=== PATIENT | female | born 1965 ===

== ENCOUNTER 2024-11-23 14:14 | Emergency (ER) | payer OTHER, SELFPAY ==
[2024-11-23] VITALS (24 sets, daily range): BP systolic 127–154; BP diastolic 76–87; PULSE 68–81; RESP 8–20; TEMP 36.7; O2SAT 89–100; BMI 26.4
--- NOTE | 2024-11-23 14:50 | DI.RAD.S_ITS ---
PROCEDURE: XR WRIST LT MIN 3V INDICATIONS: fall with wrist deformity TECHNIQUE: 4 views of the wrist were acquired. COMPARISON: None. FINDINGS: Bones: There is no subluxation or dislocation. There is acute comminuted distal radial fracture, involving the epiphysis and metaphysis. There is a large osseous fragment measuring up to 2.5 cm with significant displacement anteriorly. There is extension to the articular surface, with gross disruption. There is moderate displacement laterally. No significant angulation. There is also acute nondisplaced fracture of the distal ulnar metaphysis. Widening of the scapholunate distance. Significant diffuse osteopenia Soft tissues: No suspicious soft tissue calcifications. IMPRESSION: 1. Acute intra-articular distal radial fracture as well as acute distal ulnar fracture as described. 2. Findings of injury of the scapholunate ligament, of uncertain age. Dictated by: Wolf Infante M.D. on 11/23/2024 at 16:51 Approved by: Wolf Infante M.D. on 11/23/2024 at 16:53
--- NOTE | 2024-11-23 14:50 | DI.RAD.S_ITS ---
PROCEDURE: XR LUMBAR SPINE 2-3V INDICATIONS: fall; acute on chronic L sided low back pain TECHNIQUE: 3 views of the lumbar spine were acquired. COMPARISON: None. FINDINGS: Bones: 5 [id number] vertebrae are present. There is mild L5 anterolisthesis. Significant diffuse osteopenia. Mild compression deformities of L4, L2 and T12. Mild multilevel degenerative disc disease as well as facet arthropathy in the L3-S1 region. Soft tissues: Overlying bowel gas pattern is normal. No suspicious soft tissue calcifications. IMPRESSION: Multiple mild compression deformities, the possibility of recent lesion could be further assessed with CT or MRI in this very osteopenic patient. Dictated by: Wolf Infante M.D. on 11/23/2024 at 16:48 Approved by: Wolf Infante M.D. on 11/23/2024 at 16:50
--- NOTE | 2024-11-23 14:50 | DI.RAD.S_ITS ---
PROCEDURE: XR FOREARM LT 2V INDICATIONS: fall; acute on chronic L sided low back pain TECHNIQUE: 2 views of the forearm were acquired. COMPARISON: None. FINDINGS: Bones: There is anatomic alignment. No suspicious bony lesions. Soft tissues: No suspicious soft tissue calcifications or masses. IMPRESSION: 1. Distal radial and ulnar fractures, better assessed on the study of the wrist. 2. No other fracture seen more proximally in the forearm. The region of the elbow is suboptimally assessed. Dictated by: Wolf Infante M.D. on 11/23/2024 at 16:50 Approved by: Wolf Infante M.D. on 11/23/2024 at 16:51
--- NOTE | 2024-11-23 14:53 | ED.UPPEXIN ---
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 to ibuprofen/acetaminophen. Rest the painful area. Ice the area of pain/swelling for at least 15 minutes, 4x a day. Compress the area of swelling using a brace, wrap, or splint if applied. Elevate the painful or swollen extremity by supporting it above the level of the heart with pillows when sitting or laying. You have been prescribed a short course of narcotic medications. These are potentially dangerous and addictive medications that should be used carefully. While on these medications you cannot drive or operate heavy machinery. Additionally, you cannot sign legal documents or perform any duties such as this. 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 Please understand that we cannot provide further refills of narcotics or controlled substances through the ED and your pain management will need to be through your Primary Care Provider Please follow up with your primary care doctor within the next 2-3 days for ER follow-up. (If you do not have a PCP you can call [phone]. ?to schedule an appointment with an [facility] Primary Care Provider) IF YOU DEVELOP ANY NEW OR WORSENING SYMPTOMS, RETURN TO THE ER! Please read the attached instructions, they highlight more specific treatments and interventions for you at home. Thank you for letting me participate in your care, Jocelyn Solano PA-C Prescriptions: New oxycodone 5 mg tablet 5 mg PO Q4-6H PRN (Reason: pain) Qty: 12 0RF Referrals: Fabio Barakat MD [Physician, Orthopedic Surgery] Referral Note: Left wrist fracture Stand Alone Forms: Patient Portal/API
--- NOTE | 2024-11-23 14:56 | PC.NURSE ---
This BLACK OXIDE OPERATOR placed a purewick per patient's request at [phone]
[2024-11-23] MEDS: ONDANSETRON 4 MG/2 ML INJ IV (14:59)
[2024-11-23] MEDS: MORPHINE 4 MG/ML INJ IV ×2 (14:59→16:44)
[2024-11-23] MEDS: fentaNYL 100 MCG/2 ML INJ IV (17:45)
--- NOTE | 2024-11-23 17:50 | DI.RAD.S_ITS ---
PROCEDURE: XR WRIST LT 2V INDICATIONS: post reduction TECHNIQUE: 2 views of the wrist were acquired. COMPARISON: [facility], CR, XR WRIST LT MIN 3V, 11/23/2024, 15:27. FINDINGS: Bones: Spine material obscures fine bony detail. Distal radial comminuted fracture is again seen status post reduction with mildly improved alignment. Questionable nondisplaced distal ulnar fracture. Widening of the scapholunate interval is redemonstrated. Soft tissues: No suspicious soft tissue calcifications. IMPRESSION: Status post reduction of the comminuted distal radial fracture with improved alignment. Approved by: Siddharth Sanchez M.D. on 11/23/2024 at 18:42
--- NOTE | 2024-11-23 18:24 | DI.CT.S_ITS ---
PROCEDURE: CT LUMBAR SPINE WO CON INDICATIONS: lumbar fx on CT TECHNIQUE: Noncontrast 3 mm thick sections acquired from the T12 level to the sacrum. Sagittal and coronal reformats were constructed. For radiation dose reduction, the following was used: automated exposure control. COMPARISON: [facility], CR, XR LUMBAR SPINE 2-3V, 11/23/2024, 15:27. FINDINGS: Image quality: Excellent. Bones: Minimally depressed fracture of the L2 vertebral body, which is suspected to be acute. No significant retropulsion of osseous fragments. Suspected remote prior compression deformity of the L4 vertebral body. There is generalized bony demineralization. Included ribs and pelvis are intact. Trace grade 1 retrolisthesis at T12-L1 and L1-2 and grade 1 anterolisthesis at L5-S1. No suspicious lytic or blastic bony lesions. No pars defects. Discs: Multilevel degenerative disc disease and facet hypertrophy throughout the lumbar spine without high-grade spinal canal stenosis or high-grade neural foraminal narrowing seen in level. Soft tissues: Mildly distended urinary bladder. Status post cholecystectomy. Mild prominence of the bilateral renal collecting systems without an obstructing lesion seen. No retroperitoneal masses or hematomas. Visualized aorta is normal in caliber. IMPRESSION: 1. Minimally depressed fracture at the superior endplate of the L2 vertebral body is likely acute. No retropulsion of osseous fragments. 2. Moderate multilevel degenerative disc disease and facet hypertrophy. Approved by: Siddharth Sanchez M.D. on 11/23/2024 at 19:19
--- NOTE | 2024-11-23 19:53 | PM.HP.IH.1 ---
History of Present Illness History of Present Illness Date Patient Seen: 11/23/24 Chief complaint: fall with deformity. [facility] Social History Smoking Status: Never smoker Meds Home Medications and Allergies Home Medications ?Medication ?Instructions ?Recorded ?Confirmed ?Type oxycodone 5 mg tablet 5 mg PO Q4-6H PRN pain #12 tabs 11/23/24 Rx Allergies Allergy/AdvReac Type Severity Reaction Status Date / Time divalproex sodium (From Allergy Unknown Verified 11/23/24 15:02 Depakote) Penicillins Allergy Unknown Verified 11/23/24 15:02 tetracycline Allergy Unknown Verified 11/23/24 15:02 Exam Vital Signs (past 8 hours): - 11/23/24 14:38 11/23/24 15:22 11/23/24 15:30 Temperature 98.0 F Pulse Rate 69 68 70 Respiratory Rate 18 Blood Pressure 154/84 H Pulse Oximetry 99 98 Oxygen Delivery Method Room Air Oxygen Flow Rate 11/23/24 15:30 11/23/24 16:08 11/23/24 16:30 Temperature Pulse Rate 76 74 Respiratory Rate Blood Pressure 134/77 Pulse Oximetry 98 95 Oxygen Delivery Method Oxygen Flow Rate 11/23/24 16:49 11/23/24 16:49 11/23/24 17:00 Temperature Pulse Rate 75 Respiratory Rate Blood Pressure 134/77 138/79 Pulse Oximetry 99 Oxygen Delivery Method Oxygen Flow Rate 11/23/24 17:00 11/23/24 17:30 11/23/24 17:32 Temperature Pulse Rate 78 78 77 Respiratory Rate 13 17 Blood Pressure Pulse Oximetry 97 97 97 Oxygen Delivery Method Oxygen Flow Rate 11/23/24 17:32 11/23/24 17:35 11/23/24 17:35 Temperature Pulse Rate 75 Respiratory Rate 12 Blood Pressure 142/85 H 140/81 Pulse Oximetry 96 Oxygen Delivery Method Oxygen Flow Rate 11/23/24 17:40 11/23/24 17:40 11/23/24 17:45 Temperature Pulse Rate 77 77 Respiratory Rate 15 15 Blood Pressure 140/81 140/81 Pulse Oximetry 97 97 Oxygen Delivery Method Oxygen Flow Rate 11/23/24 17:46 11/23/24 17:46 11/23/24 17:48 Temperature Pulse Rate 81 74 Respiratory Rate 20 14 Blood Pressure 128/85 134/87 Pulse Oximetry 97 97 Oxygen Delivery Method Oxygen Flow Rate 11/23/24 17:50 11/23/24 17:50 11/23/24 17:54 Temperature Pulse Rate 74 77 Respiratory Rate 14 14 Blood Pressure 134/87 150/77 H Pulse Oximetry 100 92 Oxygen Delivery Method Oxygen Flow Rate 4 11/23/24 17:55 11/23/24 17:55 11/23/24 18:00 Temperature Pulse Rate 77 79 Respiratory Rate 14 17 Blood Pressure 150/77 H Pulse Oximetry 92 96 Oxygen Delivery Method Oxygen Flow Rate 11/23/24 18:00 11/23/24 18:04 11/23/24 18:05 Temperature Pulse Rate 80 76 Respiratory Rate 20 8 L Blood Pressure 133/84 Pulse Oximetry 95 Oxygen Delivery Method Oxygen Flow Rate 11/23/24 18:05 11/23/24 18:10 11/23/24 18:10 Temperature Pulse Rate 78 Respiratory Rate 13 Blood Pressure 131/82 127/76 Pulse Oximetry 89 L Oxygen Delivery Method Oxygen Flow Rate 11/23/24 18:30 11/23/24 19:00 Temperature Pulse Rate 78 78 Respiratory Rate 11 L 11 L Blood Pressure Pulse Oximetry 98 98 Oxygen Delivery Method Oxygen Flow Rate Oxygen Delivery Method Room Air Oxygen Flow Rate 4 Assessment & Plan Assessment & Plan narrative: ? CC: LEFT Distal Radius Fracture on 11/23/24 HPI: 58yo F? with a past medical history of epilepsy presents to the emergency department for left wrist pain.? She was working at [employer] and she tripped over someone at work where she fell onto her left outstretched hand.? She had immediate pain and swelling and then presented to the emergency department. ? They obtained radiographs which demonstrated the left distal radius fracture.? Orthopedics was then consulted.? On exam she complained of ongoing left hand pain and numbness and tingling. EXAM: LEFT ?wrist: Skin intact, ??Moderate edema;? no ecchymosis No snuffbox/tubercle TTP No TTP about elbow, no elbow pain with full flex/ext/pro/supp. SILT R/U/M? described mild paresthesias however was intact Fires EPL/EDC/FPL/IO/WE/WF/Biceps/Triceps/Delt 2+ Radial pulse, brisk cap refil to all digits IMAGING: LEFT Wrist radiographs on 11/23/24: ?displaced extra-articular distal radius fracture.? The main component is a transverse fracture in the metaphyseal diaphyseal junction.? She also has a large cortical ??Volar fragment that appears to be rotated anteriorly. LEFT? wrist radiographs on November 23, 2024:? Status post closed reduction and splinting.? There is improved alignment with her distal radius near neutral.? The volar fragment appears to be slightly improved in its rotation. ASSESSMENT: 58yo F?? Presents with a left distal radius fracture after a ground level fall.? She underwent a closed reduction and splinting in the emergency department.? There is improve in alignment and her paresthesias improved after the reduction. ? At this point this fracture pattern can be treated nonoperatively.? However I warned her that she may have a loss of reduction.? We will watch her closely and I will have her follow up in clinic early next week for repeat radiographs and likely transition to a cast.? I warned her that if she loses reduction we may need to consider open reduction internal fixation of the distal radius fracture. PLAN: ? Sugar-tong splint until follow up with Orthopedics ?nonweightbearing left upper extremity ?follow up with Orthopedics next week for repeat radiographs and likely transition to a cast The patient had the treatment plan explained, questions answered and seemed satisfied with the plan. There were no apparent barriers to communication. The documentation in this note may have been entered with the assistance of computer voice recognition and dictation software. Therefore, it may contain unintended errors in text, spelling, punctuation, or grammar. Fabio Barakat MD Orthopaedic Surgeon Time-Based Coding :: 60 spent with patient and on the chart (including review of chart, obtaining history, exam, reviewing outside data, placing orders, documenting exam and treatment plan, and counseling patient) on 11/23/24. [employer] Itinerant Teacher Assistant Document charge(s): Yes
[2024-11-23] MEDS: ONDANSETRON 4 MG ODT PREPACK 1 BOTTLE MISC (21:05)
== END 2024-11-23 21:25 | disposition home or self-care (01) ==
PROVIDERS: Emergency Provider Physician Assistant
DX: S52.502A Unspecified fracture of the lower end of left radius, initial encounter for closed fracture (principal); S52.602A Unspecified fracture of lower end of left ulna, initial encounter for closed fracture; S32.040A Wedge compression fracture of fourth lumbar vertebra, initial encounter for closed fracture; S22.080A Wedge compression fracture of T11-T12 vertebra, initial encounter for closed fracture; W01.0XXA Fall on same level from slipping, tripping and stumbling without subsequent striking against object, initial encounter; Y99.0 Civilian activity done for income or pay
CPT/HCPCS: 25605; 72100; 72131; 73090; 73100; 73110; 96374; 96375; 96376; 99284; J2272; J2405; J2704; J3010